=== PATIENT | female | born 1975 | race Caucasian/White ===

== ENCOUNTER 2020-05-01 20:42 | Emergency (ER) | payer OTHER ==
[~2020-05-01] VITALS: Ht 157.5 cm; Wt 58.5 kg
[~2020-05-01 20:42] MED LIST: MOTRIN800 MG PO; ORPH100T PO
== END 2020-05-01 22:56 | disposition home or self-care (01) ==
LOC: ER 20:42
DX: R05 Cough (principal); Z20.822 Contact with and (suspected) exposure to COVID-19

== ENCOUNTER 2022-06-17 05:30 | Day surgery (SDC) | payer OTHER | END 2022-06-17 14:00 | disposition home or self-care (01) | LOC: CIR.AMB 05:30 | PROVIDERS: ATTEND Obstetrics & Gynecology | DX: D25.0 Submucous leiomyoma of uterus (principal); N72 Inflammatory disease of cervix uteri; N93.8 Other specified abnormal uterine and vaginal bleeding; R10.2 Pelvic and perineal pain; F17.210 Nicotine dependence, cigarettes, uncomplicated; Z20.822 Contact with and (suspected) exposure to COVID-19 ==

== ENCOUNTER → 2023-05-16 | Emergency (ER) | payer OTHER ==
[~2023-05-16] VITALS: Ht 157.5 cm; Wt 54.4 kg
[~2023-05-16] MED LIST changes: +FAMOtidine 10 MG/ML (4ML VIAL) IV PUSH STA; +HYOSCYAMINE SULFATE 0.125 MG TAB.SUBL SL STA; +KETOROLAC TROMETHAMINE 30 MG VIAL IV STA; +METOCLOPRAMIDE HCL 5 MG/ML VIAL IM STA; +ONDANSETRON HCL 2 MG/ML VIAL IV STA; +PROMETHAZINE HCL 50 MG/ML AMPUL IM STA; +RINGERS SOLUTION,LACTATED 1,000 ML IV STA; +WEGOVY1.7 MG/0.7 SUBCUTANEO
[2023-05-17 01:44] LABS: HEMATOCRIT 43.1 % (36.0-45.00); HEMOGLOBIN 14.7 g/dL (12.0-15.00); MEAN CELL VOLUME 93.3 fL (80.00-100.00); MEAN CORPUSCULAR HEMOGLOBIN 31.9 pg (27.00-32.0); MEAN CORPUSCULAR HGB CONC 34.2 g/dl (32.0-36.0); PLATELET COUNT 222 K/uL (150-450); RED BLOOD COUNT 4.62 M/uL (4.00-6.00); RED CELL DISTRIBUTION WIDTH 13.2 % (11.5-14.5)
[2023-05-17 02:13] LABS: CREATININE SERUM 0.9 mg/dL (0.55-1.02); GFR 67.11; POTASSIUM 3.65 mEq/L (3.5-5.1)
== END | disposition home or self-care (01) ==
LOC: ER 22:59
DX: K29.70 Gastritis, unspecified, without bleeding (principal)

== ENCOUNTER 2023-06-03 20:43 | Emergency (ER) | payer OTHER ==
[~2023-06-03] VITALS: Ht 157.5 cm; Wt 53.1 kg
[~2023-06-03 20:43] MED LIST changes: -FAMOtidine 10 MG/ML (4ML VIAL) IV PUSH STA; -HYOSCYAMINE SULFATE 0.125 MG TAB.SUBL SL STA; -KETOROLAC TROMETHAMINE 30 MG VIAL IV STA; -METOCLOPRAMIDE HCL 5 MG/ML VIAL IM STA; -ONDANSETRON HCL 2 MG/ML VIAL IV STA; -PROMETHAZINE HCL 50 MG/ML AMPUL IM STA; -RINGERS SOLUTION,LACTATED 1,000 ML IV STA
[2023-06-03] MEDS ORDERED: DEXAMETHASONE SODIUM PHOSPHATE 4 MG/ML VIAL IM ONE (21:30)
[2023-06-03] MEDS ORDERED: AZITHROMYCIN 500 MG TABLET PO ONE (21:30)
[2023-06-03] MEDS ORDERED: KETOROLAC TROMETHAMINE 60 MG VIAL IM ONE (21:30)
[2023-06-03] MEDS ORDERED: GUAIFENESIN/DEXTROMETHORPHAN 100 MG/5 ML ML PO ONE (21:30)
[2023-06-03 21:39] LABS: HEMATOCRIT 41.8 % (36.0-45.00); HEMOGLOBIN 14.2 g/dL (12.0-15.00); MEAN CELL VOLUME 91.5 fL (80.00-100.00); MEAN CORPUSCULAR HGB CONC 33.9 g/dl (32.0-36.0); PLATELET COUNT 201 K/uL (150-450); RED BLOOD COUNT 4.56 M/uL (4.00-6.00); RED CELL DISTRIBUTION WIDTH 13.3 % (11.5-14.5)
[2023-06-03] MEDS ORDERED: TUSNEL LIQUID178 ML PO (22:23)
[2023-06-03] MEDS ORDERED: ZITHROMAX500 MG PO (22:23)
[2023-06-03] MEDS ORDERED: XOPENEX CO1.25 MG/0. IH (22:23)
[2023-06-03] MEDS ORDERED: ZYRTEC10 M3 PO (22:23)
== END 2023-06-03 22:45 | disposition home or self-care (01) ==
LOC: ER 20:43
PROVIDERS: General Practice
DX: J06.9 Acute upper respiratory infection, unspecified (principal); Z20.822 Contact with and (suspected) exposure to COVID-19

== ENCOUNTER 2023-10-29 19:43 | Emergency (ER) | payer OTHER ==
[~2023-10-29] VITALS: Ht 157.5 cm; Wt 53.1 kg
[~2023-10-29 19:43] MED LIST changes: +TUSNEL LIQUID178 ML PO; +XOPENEX CO1.25 MG/0. IH; +ZITHROMAX500 MG PO; +ZYRTEC10 M3 PO
[2023-10-29] MEDS ORDERED: FAMOtidine 10 MG/ML (4ML VIAL) IV PUSH ONE (20:45)
[2023-10-29] MEDS ORDERED: 0.9 % SODIUM CHLORIDE 1,000 ML IV ONE (20:45)
[2023-10-29] MEDS ORDERED: HYOSCYAMINE SULFATE 0.125 MG TAB.SUBL SL ONE (20:45)
[2023-10-29] MEDS ORDERED: ONDANSETRON 4 MG TAB.RAPDIS PO ONE (20:45)
[2023-10-29] MEDS ORDERED: HYOSCYAMINE SULFATE 0.125 MG TAB.SUBL ONE (20:49)
[2023-10-29] MEDS ORDERED: ONDANSETRON HCL 2 MG/ML VIAL ONE (20:49)
[2023-10-29] MEDS ORDERED: FAMOTIDINE/PF 20 MG/2 ML VIAL ONE (20:50)
[2023-10-29 20:56] LABS: HEMATOCRIT 46.1 % (36.0-45.00); HEMOGLOBIN 15.7 g/dL (12.0-15.00); MEAN CELL VOLUME 92.6 fL (80.00-100.00); MEAN CORPUSCULAR HEMOGLOBIN 31.5 pg (27.00-32.0); PLATELET COUNT 214 K/uL (150-450); RED BLOOD COUNT 4.98 M/uL (4.00-6.00); RED CELL DISTRIBUTION WIDTH 13.6 % (11.5-14.5)
[2023-10-29 21:29] LABS: BILIRUBIN TOTAL 1.96 mg/dL (0.3-1.2); CALCIUM 9.5 mg/dL (8.5-10.1); CREATININE SERUM 0.94 mg/dL (0.55-1.02); GFR 63.56; GLOBULINA 3.6 G/DL (2.4-3.5); POTASSIUM 3.88 mEq/L (3.5-5.1); TOTAL PROTEIN 7.6 gm/dL (6.4-8.2)
[2023-10-29] MEDS ORDERED: METOCLOPRAMIDE HCL 5 MG/ML VIAL IV ONE (22:15)
[2023-10-29] MEDS ORDERED: MEPERIDINE HCL/PF 50 MG/ML VIAL IM ONE (22:15)
[2023-10-29] MEDS ORDERED: PROMETHAZINE HCL 50 MG/ML AMPUL IM ONE (22:15)
== END 2023-10-30 00:18 | disposition home or self-care (01) ==
LOC: ER 19:43
PROVIDERS: General Practice
DX: R10.13 Epigastric pain (principal); N83.291 Other ovarian cyst, right side

== ENCOUNTER 2025-01-31 18:57 | Emergency (ER) | payer OTHER ==
[~2025-01-31] VITALS: Ht 157.5 cm; Wt 52.2 kg
[2025-01-31] MEDS ORDERED: CLONAZEPAM0.125 MG (19:16)
[2025-01-31] MEDS ORDERED: BUPROPION HCL75 MG (19:16)
[2025-01-31] MEDS ORDERED: CEFTRIAXONE SODIUM 1,000 MG VIAL IV ONE (19:45)
[2025-01-31] MEDS ORDERED: CETIRIZINE HCL 5MG/5ML BLIST.PACK PO ONE (19:45)
[2025-01-31] MEDS ORDERED: LEVALBUTEROL HCL 1.25 MG/3 ML SOLUTION IH ONE (20:00)
[2025-01-31 20:10] LABS: BASO % 0.4 % (0.1-1.2); EOS # 0.17 (0.04-0.54); EOS % 2.2 % (0.7-7.0); LYMPH # 1.13 (1.18-3.74); LYMPH % 14.8 % (19.3-53.1); MEAN PLATELET VOLUME 10.50 fl (9.4-12.4); MONO # 0.63 (0.24-0.82); MONO % 8.2 % (4.7-12.5); NEUT # 5.67 (1.56-6.13); NEUT % 74.1 % (34.0-71.1); RED CELL DISTRIBUTION WIDTH 13.1 % (11.6-14.4)
[2025-01-31 20:40] LABS: ALT/SGPT 21.0 U/L (12-78); AST/SGOT 13.0 U/L (15-37); BILIRUBIN TOTAL 0.66 mg/dL (0.3-1.2); BUN CREA RATIO 16.0 (7.0-25.0); CREATININE SERUM 1.33 mg/dL (0.55-1.02); GFR 42.4; GLOBULINA 3.7 G/DL (2.4-3.5); GLUCOSE FASTING 96.0 mg/dL (65-100); OSMOLALITY SERUM 282.0 MOSM/KG (275-295)
[2025-01-31 21:20] LABS: COVID-19 AG NEGATIVE (NEGATIVE)
[2025-01-31] MEDS ORDERED: PEPCID AC20 MG PO (22:23)
[2025-01-31] MEDS ORDERED: GILPHEX TR 3901 EACH PO (22:23)
[2025-01-31] MEDS ORDERED: LEVALBUTER0.63 MG/3 IH (22:23)
[2025-01-31] MEDS ORDERED: AMOX1TAB5 PO (22:23)
[2025-01-31] MEDS ORDERED: KETOROLAC TROMETHAMINE 60 MG VIAL IM ONE (22:30)
== END 2025-01-31 22:59 | disposition home or self-care (01) ==
LOC: ER 18:58
PROVIDERS: General Practice
DX: L30.8 Other specified dermatitis (principal); R06.02 Shortness of breath; F17.210 Nicotine dependence, cigarettes, uncomplicated; Z20.822 Contact with and (suspected) exposure to COVID-19; J32.0 Chronic maxillary sinusitis